=== PATIENT | male | born 1960 | race Caucasian/White ===

== ENCOUNTER 2019-04-24 14:31 | Emergency (ER) | payer OTHER, BC ==
--- NOTE | 2019-04-25 05:13 | EDM.PDOC ---
ED HPI GENERAL MEDICAL PROBLEM - General Chief Complaint: Laceration Stated Complaint: LT HAND Time Seen by Provider: 04/24/19 14:35 Source of Information: Reports: Patient History Limitations: Reports: No Limitations - History of Present Illness INITIAL COMMENTS - FREE TEXT/NARRATIVE: Pt. states that he sustained a superficial laceration to the 5th digit of his L hand. He states that he cut it on the sharp portion of a metal bar. He states that his tetanus is UTD. Onset: Today Onset Date: 04/25/19 Location: Reports: Upper Extremity, Left Quality: Reports: Sharp - Related Data Allergies Allergy/AdvReac Type Severity Reaction Status Date / Time amoxicillin [From Augmentin] Allergy Hives Verified 04/24/19 16:38 clavulanic acid Allergy Hives Verified 04/24/19 16:38 [From Augmentin] Home Meds: Home Meds . [Unable to Verify Home Med List] 04/24/19 [History] Past Medical History Cardiovascular History: Reports: High Cholesterol, Hypertension Endocrine/Metabolic History: Reports: Hypothyroidism Social & Family History - Tobacco Use Smoking Status *Q: Never Smoker - Recreational Drug Use Recreational Drug Use: No ED ROS GENERAL - Review of Systems Review Of Systems: See Below Constitutional: Reports: No Symptoms HEENT: Reports: No Symptoms Respiratory: Reports: No Symptoms Cardiovascular: Reports: No Symptoms Endocrine: Reports: No Symptoms GI/Abdominal: Reports: No Symptoms : Reports: No Symptoms Musculoskeletal: Reports: Other (See HPI) Skin: Reports: No Symptoms Neurological: Reports: No Symptoms Psychiatric: Reports: No Symptoms Hematologic/Lymphatic: Reports: No Symptoms ED EXAM, SKIN/RASH Exam: See Below Exam Limited By: No Limitations General Appearance: Alert, WD/WN, No Apparent Distress Extremities: Other (1 cm superficial laceration to pad of L index finger.) Neurological: Alert, Oriented, CN II-XII Intact, Normal Cognition, Normal Gait, Normal Reflexes, No Motor/Sensory Deficits ED SKIN PROCEDURES - Laceration/Wound Repair Left Ventral Digit - 5th (Baby) Appearance: Superficial Skin Prep: Chlorhexidine (Hibiciens), Saline Closed with: Dermabond Lac/Wound length In cm: 1 Course - Vital Signs Last Recorded V/S: Last Vital Signs Temp 36.6 C 04/24/19 14:31 Pulse 93 04/24/19 14:31 Resp 16 04/24/19 14:31 BP 137/97 H 04/24/19 14:31 Pulse Ox 98 04/24/19 14:31 Departure - Departure Time of Disposition: 15:05 Disposition: Home, Self-Care 01 Clinical Impression: Laceration - Discharge Information Instructions: Laceration Care, Adult, Stitches, Lili, or Adhesive Wound Closure, [id number] Referrals: PCP,Not In Area [Primary Care Provider] - Forms: ED Department Discharge Additional Instructions: Keep dry for 24 hours. Off work for the rest of the day, or at minimum, no heavy lifting. I also want to keep it open to the air and dry for 24 hours. Tylenol and ibuprofen as needed for pain. - Assessment/Plan Plan: Keep dry for 24 hours. Off work for the rest of the day, or at minimum, no heavy lifting. I also want to keep it open to the air and dry for 24 hours. Tylenol and ibuprofen as needed for pain.
== END 2019-04-24 15:05 | disposition home or self-care (01) ==
LOC: VM.ED 14:31
DX: S61.217A Laceration without foreign body of left little finger without damage to nail, initial encounter (principal); I10 Essential (primary) hypertension; Z88.1 Allergy status to other antibiotic agents; W26.8XXA Contact with other sharp object(s), not elsewhere classified, initial encounter
CPT/HCPCS: 12001; 99282-25